=== PATIENT | female | born 1985 | race Caucasian/White ===

== ENCOUNTER → 2017-02-10 | Outpatient (REF) | payer OTHER ==
[2017-02-10 12:21] LABS: HEMATOCRIT 43.2 % (36.0-47.0); HEMOGLOBIN 14.3 g/dl (12.0-16.0); MEAN CORPUSCULAR HEMOGLOBIN 28.6 pg (27.0-33.0); MEAN CORPUSCULAR HGB CONC 33.1 g/dl (32.0-36.5); MEAN CORPUSCULAR VOLUME 86.4 fl (80.0-96.0); PLATELET COUNT, AUTOMATED 217 10^3/uL (150-450); RED CELL DISTRIBUTION WIDTH 12.2 % (11.5-14.5); WHITE BLOOD COUNT 5.3 10^3/uL (4.0-10.0)
[2017-02-10 12:29] LABS: TOTAL 25(OH) VITAMIN D 29.1 NG/ML (30.0-100.0); TOTAL T3 130.1 NG/DL (60.0-181.0)
[2017-02-10 12:37] LABS: ALBUMIN 4.1 GM/DL (3.2-5.2); ALBUMIN/GLOBULIN RATIO 1.46 (1.00-1.93); ALKALINE PHOSPHATASE 66 U/L (45-117); ALT/SGPT 26 U/L (12-78); ANION GAP 5 MEQ/L (8-16); AST/SGOT 15 U/L (7-37); BILIRUBIN,TOTAL 0.8 MG/DL (0.2-1.0); BLOOD UREA NITROGEN 15 MG/DL (7-18); CALCIUM LEVEL 8.8 MG/DL (8.5-10.1); CARBON DIOXIDE LEVEL 29 MEQ/L (21-32); CHLORIDE LEVEL 106 MEQ/L (98-107); CHOLESTEROL LEVEL 162 MG/DL (<200); CHOLESTEROL RISK RATIO 2.219 (<5); GLOMERULAR FILTRATION RATE > 60.0 (>60); GLUCOSE, FASTING 85 MG/DL (70-105); HDL CHOLESTEROL 73 MG/DL (>40); LDL CHOLESTEROL 73.4 MG/DL (<100); NON-HDL-C 89 MG/DL; POTASSIUM SERUM 3.9 MEQ/L (3.5-5.1); SODIUM LEVEL 140 MEQ/L (136-145); THYROXINE (T4) 8.7 UG/DL (4.5-12.0); TOTAL PROTEIN 6.9 GM/DL (6.4-8.2); TRIGLYCERIDES LEVEL 78 MG/DL (<150)
[2017-02-10 13:15] LABS: ESTIMATED AVERAGE GLUCOSE 91 MG/DL (60-110); HEMOGLOBIN A1c 4.8 %
[2017-02-12 14:10] LABS: C-PEPTIDE 2.6 ng/mL (1.1-4.4)
[2017-02-12 14:10] LABS: INSULIN LEVEL 12.1 uIU/mL (2.6-24.9)
== END ==
LOC: M LABNEURO 08:08
DX: E11.9 Type 2 diabetes mellitus without complications (principal); E03.9 Hypothyroidism, unspecified; R53.83 Other fatigue
CPT/HCPCS: 83525

== ENCOUNTER → 2017-06-09 | Outpatient (REF) | payer OTHER | LOC: M LABNEURO 08:09 | DX: J02.0 Streptococcal pharyngitis (principal) ==

== ENCOUNTER → 2017-07-09 | Outpatient (CLI) | payer OTHER ==
[2017-07-09 09:02] LABS: MEAN CORPUSCULAR HEMOGLOBIN 28.8 pg (27.0-33.0); MEAN CORPUSCULAR HGB CONC 33.3 g/dl (32.0-36.5); MEAN CORPUSCULAR VOLUME 86.4 fl (80.0-96.0); PLATELET COUNT, AUTOMATED 229 10^3/uL (150-450); RED BLOOD COUNT 4.86 10^6/uL (4.00-5.40); RED CELL DISTRIBUTION WIDTH 12.4 % (11.5-14.5); WHITE BLOOD COUNT 5.5 10^3/uL (4.0-10.0)
[2017-07-09 09:32] LABS: ALBUMIN 3.8 GM/DL (3.2-5.2); ALBUMIN/GLOBULIN RATIO 1.12 (1.00-1.93); ALKALINE PHOSPHATASE 75 U/L (45-117); ALT/SGPT 17 U/L (12-78); ANION GAP 5 MEQ/L (8-16); AST/SGOT 12 U/L (7-37); BILIRUBIN,TOTAL 0.7 MG/DL (0.2-1.0); BLOOD UREA NITROGEN 13 MG/DL (7-18); CALCIUM LEVEL 8.7 MG/DL (8.5-10.1); CARBON DIOXIDE LEVEL 29 MEQ/L (21-32); CHLORIDE LEVEL 109 MEQ/L (98-107); CHOLESTEROL LEVEL 142 MG/DL (<200); CHOLESTEROL RISK RATIO 2.327 (<5); CREATININE FOR GFR 0.68 MG/DL (0.55-1.30); GLOMERULAR FILTRATION RATE > 60.0 (>60); GLUCOSE, FASTING 88 MG/DL (70-100); HDL CHOLESTEROL 61 MG/DL (>40); LDL CHOLESTEROL 71.6 MG/DL (<100); NON-HDL-C 81 MG/DL; POTASSIUM SERUM 4.3 MEQ/L (3.5-5.1); SODIUM LEVEL 143 MEQ/L (136-145); THYROID STIMULATING HORMONE 0.984 uIU/ML (0.358-3.740); TOTAL PROTEIN 7.2 GM/DL (6.4-8.2); TRIGLYCERIDES LEVEL 47 MG/DL (<150)
[2017-07-09 10:21] LABS: ESTIMATED AVERAGE GLUCOSE 97 MG/DL (60-110)
== END ==
LOC: M LAB 07:56
DX: R53.83 Other fatigue (principal); E03.9 Hypothyroidism, unspecified
CPT/HCPCS: 84443

== ENCOUNTER 2018-03-28 11:32 | Emergency (ER) | payer OTHER ==
[~2018-03-28] VITALS: Ht 172.7 cm; Wt 84.1 kg
[2018-03-28 11:32] VITALS: BP 128/89
[~2018-03-28 11:32] MED LIST: MULTCAP PO; PERC5TAB12 PO; PHEN30CA2 PO
[2018-03-28] MEDS ORDERED: LEVO150T7 (11:38)
[2018-03-28] MEDS ORDERED: RIZA10TA2 (11:38)
[2018-03-28] MEDS ORDERED: DEXTROAMP (11:38)
== END 2018-03-28 13:22 | disposition left against medical advice (07) ==
LOC: M ED 11:32
DX: M54.2 Cervicalgia (principal); E03.9 Hypothyroidism, unspecified; Z79.899 Other long term (current) drug therapy

== ENCOUNTER → 2019-02-20 | Outpatient (REF) | payer OTHER ==
[~2019-02-20] MED LIST changes: +DEXTROAMP; +LEVO150T7; +RIZA10TA2
[2019-02-20 15:09] LABS: HEMATOCRIT 44.7 % (36.0-47.0); HEMOGLOBIN 14.5 g/dl (12.0-15.5); MEAN CORPUSCULAR HEMOGLOBIN 28.1 pg (27.0-33.0); MEAN CORPUSCULAR HGB CONC 32.4 g/dl (32.0-36.5); MEAN CORPUSCULAR VOLUME 86.6 fl (80.0-96.0); PLATELET COUNT, AUTOMATED 238 10^3/uL (150-450); RED BLOOD COUNT 5.16 10^6/uL (4.00-5.40)
[2019-02-20 16:47] LABS: ALBUMIN 3.9 GM/DL (3.2-5.2); ALT/SGPT 19 U/L (12-78); BILIRUBIN,TOTAL 0.4 MG/DL (0.2-1.0); BLOOD UREA NITROGEN 16 MG/DL (7-18); CALCIUM LEVEL 8.9 MG/DL (8.5-10.1); CARBON DIOXIDE LEVEL 30 MEQ/L (21-32); CHLORIDE LEVEL 103 MEQ/L (98-107); CHOLESTEROL LEVEL 152 MG/DL (<200); CREATININE FOR GFR 0.69 MG/DL (0.55-1.30); GLOMERULAR FILTRATION RATE > 60.0 (>60); GLUCOSE, FASTING 88 MG/DL (70-100); HDL CHOLESTEROL 58 MG/DL (>40); LDL CHOLESTEROL 79 MG/DL (<100); NON-HDL-C 94 MG/DL; SODIUM LEVEL 138 MEQ/L (136-145); THYROXINE (T4) 12.6 UG/DL (4.5-12.0); TOTAL 25(OH) VITAMIN D 25.6 NG/ML (30.0-100.0); TOTAL PROTEIN 7.2 GM/DL (6.4-8.2); TRIGLYCERIDES LEVEL 77 MG/DL (<150)
[2019-02-20 16:48] LABS: TOTAL T3 135.4 NG/DL (60.0-181.0)
[2019-02-20 17:22] LABS: HEMOGLOBIN A1c 4.9 %
== END ==
LOC: M LABNEURO 08:06
PROVIDERS: ATTEND Family Medicine
DX: R53.83 Other fatigue (principal); E03.9 Hypothyroidism, unspecified

== ENCOUNTER → 2019-06-09 | Outpatient (CLI) | payer OTHER ==
--- NOTE | 2019-06-09 08:48 | REP ---
MAXILLOFACIAL CT STUDY WITHOUT CONTRAST: HISTORY: Chronic sinusitis. Comparison is made with imaging from brain MRI study October 19, 2017. CT FINDINGS: Preliminary digital scouts radiograph is unremarkable. The frontal sinuses are clear. There are minimal mucosal thickening changes in the anterior ethmoid air cells bilaterally. Sphenoid sinuses are clear. There is mild mucosal thickening in the inferior aspect of the maxillary sinuses bilaterally similar to the appearance seen on October 19, 2017 MRI study of the brain. Mastoid aeration is normal and symmetric. The middle ear cavities are aerated bilaterally. No intraorbital abnormality is seen. The deep facial and intracranial soft tissues are unremarkable as visualized. The mid bony nasal septum deviates slightly to the right without a discernible beak. Nasal turbinate soft tissues are unremarkable and symmetric. Ostiomeatal complexes appear patent. IMPRESSION: Mild mucosal changes in the maxillary sinuses and anterior ethmoid sinuses bilaterally. Otherwise negative. Electronically Signed by Peter Villalobos MD 06/09/2019 10:41 A
== END ==
LOC: M RAD 08:11
PROVIDERS: ATTEND Otolaryngology
DX: J32.4 Chronic pansinusitis (principal)

== ENCOUNTER → 2019-08-18 | Outpatient (CLI) | payer OTHER ==
[~2019-08-18] MED LIST changes: +ESCI10TA2 PO; +RIZA10TA58 PO; +SING10TA32 PO; +TRIA37.53 PO
== END ==
LOC: M LABSMTC 13:18
PROVIDERS: ATTEND Anesthesiology
DX: Z01.818 Encounter for other preprocedural examination (principal); Z11.59 Encounter for screening for other viral diseases
CPT/HCPCS: C9803; U0003

== ENCOUNTER 2019-08-22 09:42 | Day surgery (SDC) | payer OTHER ==
[~2019-08-22] VITALS: Ht 170.2 cm; Wt 99.7 kg
[~2019-08-22 09:42] MED LIST changes: +LIDOCAINE 1% MDV 20ML VIAL SQ PRN
[2019-08-22] MEDS ORDERED: LR 1,000 ML IV ONE (10:45)
[2019-08-22] MEDS ORDERED: MIDAZOLAM INJ 2MG/2ML VIAL (J2250 PER 1MG) As Ordered ONE (11:44)
[2019-08-22] MEDS ORDERED: dexameTHASONE 4 MG/ML 1ML VIAL (J1100 PER 1MG) As Ordered ONE (11:44)
[2019-08-22] MEDS ORDERED: LIDOCAINE 2% 100MG/5ML SDV (FOR ANES.) As Ordered ONE (11:45)
[2019-08-22] MEDS ORDERED: fentaNYL 250 MCG/5 ML INJECTION (J3010) As Ordered ONE (11:47)
[2019-08-22] MEDS ORDERED: LIDOCAINE W/EPINEPHRINE 1% 20ML VIAL As Ordered ONE (13:17)
[2019-08-22] MEDS ORDERED: METHYLENE BLUE 0.5% (5MG/ML) 10 ML AMP (PROVAYBLUE) As Ordered ONE (13:17)
[2019-08-22] MEDS ORDERED: EPINEPHrine 1MG/ML INJ 30ML MD-VIAL As Ordered ONE (13:18)
[2019-08-22] MEDS ORDERED: ONDANSETRON 4MG/2ML VIAL As Ordered ONE (14:38)
[2019-08-22] MEDS ORDERED: SUGAMMADEX SODIUM 500 MG/5 ML VIAL (BRIDION) As Ordered ONE (14:38)
[2019-08-22] MEDS ORDERED: ACETAMINOPH W/CODEINE #3 TAB UD PO PRN (15:15)
[2019-08-22] MEDS ORDERED: HYDROMORPHONE HCL 0.5 MG/ 0.5 ML SYRINGE (J1170 PER 1) IV PRN (15:15)
[2019-08-22] MEDS ORDERED: LR 1,000 ML IV SCH ×2 (15:15)
[2019-08-22] MEDS ORDERED: ONDANSETRON 4MG/2ML VIAL IV PRN (15:15)
[2019-08-22] MEDS ORDERED: METOCLOPRAMIDE INJ 10MG/2ML VIAL (J2765 PER 1) IV PRN (15:15)
[2019-08-22] MEDS ORDERED: oxyCODONE 5MG TAB PO PRN (15:15)
[2019-08-22] MEDS: fentaNYL 100 MCG/2 ML INJECTION (J3010) IV PRN ×4 (15:27→15:52)
[2019-08-22 16:28] VITALS: BP 131/70
--- NOTE | 2019-08-30 09:10 | RO ---
DATE OF PROCEDURE: 08/22/2019 PREOPERATIVE DIAGNOSES: Chronic sinusitis and nasal septal deviation. POSTOPERATIVE DIAGNOSES: Chronic sinusitis and nasal septal deviation. OPERATIVE PROCEDURE: Septoplasty with bilateral turbinectomies, antrostomies. SURGEON: Dr. Tristian Grady MANAGER AGRICULTURAL: ANESTHESIA: General. DESCRIPTION OF PROCEDURE: Under general anesthesia with the patient intubated, patient draped in the usual manner. I used pledgets of adrenaline 1:1000 and infiltrated with lidocaine with epinephrine. I made an incision entering on the left side, elevated the subperichondrial periosteal plane. I removed portions of the maxillary crest, ethmoid plate, and vomer, which were deviated. Once this was done, the septum was straight. I closed the incision with #4-0 chromic. Then, I went between the middle turbinate and lateral nasal wall on the right side. I removed the uncinate process , entered the maxillary sinus, enlarged that opening. The same procedure was performed on the opposite side. I made an incision anterior to the inferior turbinate on both sides. I elevated the mucosa. I used the microdebrider and removed portion of the leela anteriorly on both sides. I closed that incision with a #4-0 Vicryl. Patient tolerated the procedure well. Less than 20 mL estimated blood loss. Patient extubated and transferred to the recovery room in excellent condition.
== END 2019-08-22 16:45 | disposition home or self-care (01) ==
LOC: M SDC 09:42
PROVIDERS: ATTEND Otolaryngology
DX: J32.0 Chronic maxillary sinusitis (principal); J34.2 Deviated nasal septum; J31.0 Chronic rhinitis; Z87.891 Personal history of nicotine dependence; F32.9 Major depressive disorder, single episode, unspecified; Z79.899 Other long term (current) drug therapy
CPT/HCPCS: 30140; 30520; 31267; 88300; 88305; C2625; J1100; J2250; J2405; J3010; Q9968

== ENCOUNTER → 2020-01-16 | Outpatient (CLI) | payer SELFPAY ==
[~2020-01-16] MED LIST changes: -LIDOCAINE 1% MDV 20ML VIAL SQ PRN
== END ==
LOC: M LABSMTC 10:10
PROVIDERS: ATTEND Pediatrics
DX: Z11.59 Encounter for screening for other viral diseases (principal)

== ENCOUNTER 2020-02-12 08:15 | Emergency (ER) | payer OTHER, SELFPAY ==
[~2020-02-12] VITALS: Ht 170.2 cm; Wt 103.5 kg
[2020-02-12 08:18] VITALS: BP 140/78
[2020-02-12] MEDS ORDERED: MUCI1LIQ3 PO (08:47)
[2020-02-12] MEDS ORDERED: SUMA25TA3 (08:47)
[2020-02-12] MEDS ORDERED: TOPI25TA10 (08:47)
== END 2020-02-12 10:02 | disposition home or self-care (01) ==
LOC: M ED 08:15
DX: J06.9 Acute upper respiratory infection, unspecified (principal); Z20.828 Contact with and (suspected) exposure to other viral communicable diseases; R50.9 Fever, unspecified; R05 Cough; R07.0 Pain in throat; R51.9 Headache, unspecified; R09.82 Postnasal drip; E03.9 Hypothyroidism, unspecified; E66.9 Obesity, unspecified; Z79.899 Other long term (current) drug therapy; Z88.0 Allergy status to penicillin
CPT/HCPCS: 99282; U0003

== ENCOUNTER → 2020-02-20 | Outpatient (REF) | payer OTHER ==
[~2020-02-20] MED LIST changes: +ESCI10TA16 PO; -ESCI10TA2 PO; +MUCI1LIQ3 PO; +SUMA25TA3; +TOPI25TA10
[2020-02-20 10:40] LABS: BASO % 0.6 % (0.0-1.0); EOS # 0.7 10^3/uL (0.0-0.5); EOS % 9.6 % (0.0-3.0); LYMPH # 2.3 10^3/uL (1.5-5.0); LYMPH % 33.5 % (24.0-44.0); MEAN CORPUSCULAR HEMOGLOBIN 28.1 pg (27.0-33.0); MEAN CORPUSCULAR HGB CONC 31.8 g/dl (32.0-36.5); MEAN CORPUSCULAR VOLUME 88.4 fl (80.0-96.0); MONO # 0.5 10^3/uL (0.0-0.8); MONO % 7.1 % (0.0-5.0); NEUTROPHILS # 3.3 10^3/uL (1.5-8.5); NEUTROPHILS % 48.8 % (36.0-66.0); PLATELET COUNT, AUTOMATED 253 10^3/uL (150-450); RED BLOOD COUNT 4.98 10^6/uL (4.00-5.40); WHITE BLOOD COUNT 6.8 10^3/uL (4.0-10.0)
[2020-02-20 11:19] LABS: ALT/SGPT 18 U/L (12-78); BILIRUBIN,TOTAL 0.5 MG/DL (0.2-1.0); BLOOD UREA NITROGEN 16 MG/DL (7-18); CALCIUM LEVEL 9.3 MG/DL (8.5-10.1); CARBON DIOXIDE LEVEL 28 MEQ/L (21-32); CHLORIDE LEVEL 109 MEQ/L (98-107); CHOLESTEROL LEVEL 176 MG/DL (<200); GLOMERULAR FILTRATION RATE > 60.0 (>60); GLUCOSE, FASTING 90 MG/DL (70-100); HDL CHOLESTEROL 62 MG/DL (>40); SODIUM LEVEL 141 MEQ/L (136-145); TRIGLYCERIDES LEVEL 82 MG/DL (<150)
[2020-02-20 11:20] LABS: ALBUMIN 3.6 GM/DL (3.2-5.2); CHOLESTEROL RISK RATIO 2.838 (<5); FREE T4 0.93 NG/DL (0.76-1.46); LDL CHOLESTEROL 98 MG/DL (<100); NON-HDL-C 114 MG/DL; NT-PRO BNP 26 PG/ML (<125); TOTAL PROTEIN 6.9 GM/DL (6.4-8.2)
== END ==
LOC: M SFHCPLAZ 08:23
PROVIDERS: ATTEND Physician Assistant Medical
DX: Z00.00 Encounter for general adult medical examination without abnormal findings (principal); Z13.220 Encounter for screening for lipoid disorders; E66.9 Obesity, unspecified; R60.9 Edema, unspecified

== ENCOUNTER → 2020-08-29 | Outpatient (CLI) | payer OTHER ==
--- NOTE | 2020-08-29 09:44 | REPVR ---
PROCEDURE INFORMATION: Exam: CT Maxillofacial Without Contrast, Sinus Exam date and time: 08/29/2020 8:10 AM Age: 34 years old Clinical indication: Pain; Other: Sinus; Additional info: Chronic pansinusitis TECHNIQUE: Imaging protocol: CT Maxillofacial without contrast. Focus on the sinuses. Radiation optimization: All CT scans at this facility use at least one of these dose optimization techniques: automated exposure control; mA and/or kV adjustment per patient size (includes targeted exams where dose is matched to clinical indication); or iterative reconstruction. COMPARISON: CT Maxilofacial w/out contrast 06/09/2019 8:26 AM FINDINGS: Frontal sinuses: Normal. No air-fluid levels. Ethmoid air cells: See "Maxillary sinuses" finding. Sphenoid sinuses: Normal. No air-fluid levels. Maxillary sinuses: There is a fluid level in the posterior left maxillary sinus and some mucoid debris posteriorly on the right. There is mild mucosal thickening of the bilateral maxillary sinuses, left posterior ethmoid sinuses and the right frontoethmoid recess. Nasal cavity/Septum: Unremarkable. Orbital cavity: Orbits are normal. Globes are unremarkable. Bones/joints: No evidence of thickening of the bony payne or destructive change can be seen. There is no significant anatomic deformity of the ostiomeatal complex. Soft tissues: Unremarkable. IMPRESSION: 1. There is a fluid level in the posterior left maxillary sinus and some mucoid debris posteriorly on the right. There is mild mucosal thickening of the bilateral maxillary sinuses, left posterior ethmoid sinuses and the right frontoethmoid recess. 2. No evidence of thickening of the bony payne or destructive change can be seen. There is no significant anatomic deformity of the ostiomeatal complex. Electronically signed by: Saurabh Brown On 08/29/2020 09:43:49 AM
== END ==
LOC: M RAD 08:04
PROVIDERS: ATTEND Otolaryngology
DX: J32.4 Chronic pansinusitis (principal)

== ENCOUNTER 2020-11-13 07:09 | Day surgery (SDC) | payer OTHER ==
[~2020-11-13] VITALS: Ht 170.2 cm; Wt 106.6 kg
[~2020-11-13 07:09] MED LIST changes: +IBUP1TAB7 PO; +LEXA1TAB2 PO; +LIDOCAINE 1% MDV 20ML VIAL SQ PRN; +LR 1,000 ML IV ONE; -TOPI25TA10; +TOPI25TA10 PO
[2020-11-13] MEDS ORDERED: PYRI1TAB5 PO (07:30)
[2020-11-13] MEDS ORDERED: EPINEPHrine 1MG/ML INJ 30ML MD-VIAL As Ordered ONE (07:43)
[2020-11-13] MEDS ORDERED: LIDOCAINE W/EPINEPHRINE 1% 20ML VIAL As Ordered ONE (07:44)
[2020-11-13] MEDS ORDERED: METHYLENE BLUE 0.5% (5MG/ML) 10 ML AMP (PROVAYBLUE) As Ordered ONE (07:44)
[2020-11-13] MEDS ORDERED: LIDOCAINE 2% 100MG/5ML SDV (FOR ANES.) As Ordered ONE (07:50)
[2020-11-13] MEDS ORDERED: ROCURONIUM BROMIDE 50 MG/5 ML VIAL As Ordered ONE (07:50)
[2020-11-13] MEDS ORDERED: MIDAZOLAM INJ 2MG/2ML VIAL (J2250 PER 1MG) As Ordered ONE (07:51)
[2020-11-13] MEDS ORDERED: fentaNYL 250 MCG/5 ML INJECTION (J3010) As Ordered ONE (07:51)
[2020-11-13] MEDS ORDERED: propofoL 200 MG/20 ML VIAL As Ordered ONE ×2 (07:51→10:52)
[2020-11-13] MEDS ORDERED: dexameTHASONE 4 MG/ML 1ML VIAL (J1100 PER 1MG) As Ordered ONE (08:18)
[2020-11-13] MEDS ORDERED: METOCLOPRAMIDE INJ 10MG/2ML VIAL (J2765 PER 1) As Ordered ONE (08:32)
[2020-11-13] MEDS ORDERED: KETOROLAC 60MG 2ML VIAL As Ordered ONE (08:32)
[2020-11-13] MEDS ORDERED: ONDANSETRON 4MG/2ML VIAL As Ordered ONE (08:32)
[2020-11-13] MEDS ORDERED: SUGAMMADEX SODIUM 500 MG/5 ML VIAL (BRIDION) As Ordered ONE ×2 (08:32→08:33)
[2020-11-13] MEDS ORDERED: ACETAMINOPHEN 1000MG 100ML IV BTL (OFIRMEV) (J0131 PER 10MG) As Ordered ONE (08:33)
[2020-11-13] MEDS ORDERED: fentaNYL 100 MCG/2 ML INJECTION (J3010) IV PRN (09:40)
[2020-11-13] MEDS ORDERED: ONDANSETRON 4MG/2ML VIAL IV PRN (09:40)
[2020-11-13] MEDS ORDERED: oxyCODONE 5MG TAB PO PRN (09:40)
[2020-11-13] MEDS ORDERED: ACETAMINOPHEN/CODEINE 300MG/30MG 12.5 ML UDC PO PRN (09:40)
[2020-11-13] MEDS ORDERED: LR 1,000 ML IV SCH ×2 (09:40)
[2020-11-13 11:00] VITALS: BP 118/80
--- NOTE | 2020-11-13 14:02 | RO ---
OPERATIVE NOTE DATE OF OPERATION: 11/13/2020 PREOPERATIVE DIAGNOSIS: Chronic rhinosinusitis, nasal valve collapse. POSTOPERATIVE DIAGNOSIS: Chronic rhinosinusitis, nasal valve collapse. PROCEDURE: Nasal valve repair, bilateral turbinectomy, antrostomy, ethmoidectomy. SURGEON: LUIS FERNANDO SAUER MD FINDINGS: The antrostomy site was opened but I just enlarged them. DESCRIPTION OF PROCEDURE: Under general anesthesia, the patient was intubated, patient was prepped and draped in the usual manner. I used pledgets soaked in adrenaline 1:100,000. I infiltrated the Lidocaine and Epinephrine. I started first on the right side. I removed a portion of the middle turbinate. I then went between the middle turbinate and lateral nasal wall. I enlarged the antrostomy opening and then opened the anterior ethmoid cells. The same procedure was performed on the opposite side. Then, what I did was I made an incision anterior to the nasal bone on both sides inferiorly and then elevated the periosteum. I then put in a stitch. First, what I did was I drilled a hole through the inferior part of the nasal bone and put the stitch through there and through the lateral darío of the lower lateral cartilage of 4-0 Monocryl. The same procedure was performed on both sides. The patient tolerated the procedure well. I put PROPEL implants in the osteomeatal complex area. Patient was extubated and transferred to the Recovery Room in excellent condition.
== END 2020-11-13 11:00 | disposition home or self-care (01) ==
LOC: M SDC 07:09
PROVIDERS: ATTEND Otolaryngology
DX: J32.8 Other chronic sinusitis (principal); K21.9 Gastro-esophageal reflux disease without esophagitis; F41.9 Anxiety disorder, unspecified; J45.909 Unspecified asthma, uncomplicated; G43.909 Migraine, unspecified, not intractable, without status migrainosus; R06.83 Snoring; Z87.891 Personal history of nicotine dependence; Z88.1 Allergy status to other antibiotic agents; Z79.899 Other long term (current) drug therapy
CPT/HCPCS: 30465; 30999; 31254; 31256; C2625; J0131; J1100; J1885; J2250; J2405; J2765; J3010; Q9968

== ENCOUNTER → 2021-03-12 | Outpatient (CLI) | payer OTHER ==
[~2021-03-12] MED LIST changes: -LIDOCAINE 1% MDV 20ML VIAL SQ PRN; -LR 1,000 ML IV ONE; -PHEN30CA2 PO; +PHEN30CA21 PO; +PYRI1TAB5 PO
[2021-03-12 16:18] LABS: FREE T4 0.97 NG/DL (0.76-1.46); THYROID STIMULATING HORMONE 1.83 uIU/ML (0.358-3.740)
== END ==
LOC: M PLALAB 14:13
PROVIDERS: ATTEND Physician Assistant Medical
DX: F41.9 Anxiety disorder, unspecified (principal)

== ENCOUNTER → 2021-10-09 | Outpatient (REF) | payer OTHER ==
[~2021-10-09] MED LIST changes: -TRIA37.53 PO; +TRIA37.577 PO
[2021-10-09 17:33] LABS: BASO % 0.3 % (0.0-1.0); EOS # 0.5 10^3/uL (0.0-0.5); EOS % 4.2 % (0.0-3.0); HEMATOCRIT 44.4 % (36.0-47.0); HEMOGLOBIN 14.5 g/dl (12.0-15.5); LYMPH % 25.2 % (24.0-44.0); MEAN CORPUSCULAR HEMOGLOBIN 27.7 pg (27.0-33.0); MEAN CORPUSCULAR HGB CONC 32.7 g/dl (32.0-36.5); MEAN CORPUSCULAR VOLUME 84.7 fl (80.0-96.0); MONO # 0.8 10^3/uL (0.0-0.8); MONO % 6.5 % (2.0-8.0); NEUTROPHILS # 7.5 10^3/uL (1.5-8.5); NEUTROPHILS % 63.4 % (36.0-66.0); PLATELET COUNT, AUTOMATED 311 10^3/uL (150-450); RED BLOOD COUNT 5.24 10^6/uL (4.00-5.40); WHITE BLOOD COUNT 11.8 10^3/uL (4.0-10.0)
[2021-10-09 18:16] LABS: ALBUMIN 3.7 GM/DL (3.2-5.2); ALT/SGPT 23 U/L (12-78); BILIRUBIN,TOTAL 0.4 MG/DL (0.2-1.0); BLOOD UREA NITROGEN 24 MG/DL (7-18); CALCIUM LEVEL 9.1 MG/DL (8.5-10.1); CARBON DIOXIDE LEVEL 24 MEQ/L (21-32); CHLORIDE LEVEL 107 MEQ/L (98-107); CHOLESTEROL LEVEL 167 MG/DL (<200); CHOLESTEROL RISK RATIO 2.783 (<5); CREATININE FOR GFR 0.77 MG/DL (0.55-1.30); GLOMERULAR FILTRATION RATE > 60.0 (>60); GLUCOSE, FASTING 91 MG/DL (70-100); HDL CHOLESTEROL 60 MG/DL (>40); LDL CHOLESTEROL 59 MG/DL (<100); NON-HDL-C 107 MG/DL; POTASSIUM SERUM 3.8 MEQ/L (3.5-5.1); SODIUM LEVEL 139 MEQ/L (136-145); TOTAL PROTEIN 7.2 GM/DL (6.4-8.2); TRIGLYCERIDES LEVEL 240 MG/DL (<150)
== END ==
LOC: M SFHCPLAZ 16:19
PROVIDERS: ATTEND Physician Assistant Medical
DX: K21.9 Gastro-esophageal reflux disease without esophagitis (principal); E66.9 Obesity, unspecified; Z13.220 Encounter for screening for lipoid disorders

== ENCOUNTER → 2023-02-11 | Outpatient (REF) | payer OTHER ==
[~2023-02-11] MED LIST changes: +MONT-5 PO; -SING10TA32 PO
== END ==
LOC: M SFHCPLAZ 17:13
PROVIDERS: ATTEND Physician Assistant Medical
DX: J06.9 Acute upper respiratory infection, unspecified (principal)

== ENCOUNTER 2023-04-02 20:47 | Emergency (ER) | payer OTHER ==
[~2023-04-02] VITALS: Ht 170.2 cm; Wt 104.2 kg
[2023-04-02 22:43] LABS: BASO % 0.3 % (0.0-1.0); EOS # 0.1 10^3/uL (0.0-0.5); EOS % 1.6 % (0.0-3.0); HEMATOCRIT 43.2 % (36.0-47.0); HEMOGLOBIN 14.6 g/dl (12.0-15.5); LYMPH % 16.2 % (24.0-44.0); MEAN CORPUSCULAR HEMOGLOBIN 28.5 pg (27.0-33.0); MEAN CORPUSCULAR HGB CONC 33.8 g/dl (32.0-36.5); MEAN CORPUSCULAR VOLUME 84.4 fl (80.0-96.0); MONO # 0.4 10^3/uL (0.0-0.8); MONO % 6.4 % (2.0-8.0); NEUTROPHILS # 4.8 10^3/uL (1.5-8.5); NEUTROPHILS % 75.2 % (36.0-66.0); PLATELET COUNT, AUTOMATED 199 10^3/uL (150-450); RED BLOOD COUNT 5.12 10^6/uL (4.00-5.40); WHITE BLOOD COUNT 6.4 10^3/uL (4.0-10.0)
[2023-04-02 23:04] LABS: LIPASE 28 U/L (12-53)
[2023-04-02 23:06] LABS: ALBUMIN 3.4 G/DL (3.2-5.2); ALKALINE PHOSPHATASE 73 U/L (46-116); ALT/SGPT 22 U/L (7.0-40); AST/SGOT 10 U/L (<34); BILIRUBIN,DIRECT 0.3 MG/DL (<0.4); TOTAL PROTEIN 6.3 G/DL (5.7-8.2)
[2023-04-02 23:08] LABS: HCG, SERUM QUALITATIVE NEGATIVE (NEGATIVE)
[2023-04-02] MEDS: METOCLOPRAMIDE INJ 10MG/2ML VIAL IV ONE (23:14)
[2023-04-02] MEDS: KETOROLAC 30 MG/ML 1ML VIAL IV ONE (23:14)
[2023-04-02] MEDS: NS 1,000 ML IV ONE (23:14)
[2023-04-02 23:15] VITALS: BP 100/61
[2023-04-02 23:30] VITALS: TEMP 98.1; O2SAT 96
[2023-04-02 23:30] LABS: BLOOD UREA NITROGEN 18 MG/DL (9-23); CALCIUM LEVEL 8.1 MG/DL (8.5-10.1); CARBON DIOXIDE LEVEL 26 MMOL/L (20-31); CHLORIDE LEVEL 107 MMOL/L (98-107); CREATININE FOR GFR 0.65 MG/DL (0.55-1.30); GLOMERULAR FILTRATION RATE > 60.0 (>60); GLUCOSE, FASTING 100 MG/DL (60-100); SODIUM LEVEL 138 MMOL/L (136-145)
[2023-04-02 23:32] LABS: RSV AMPLIFICATION NEGATIVE (NEGATIVE)
== END 2023-04-02 23:45 | disposition home or self-care (01) ==
LOC: M ED 20:47
DX: R10.13 Epigastric pain (principal); G43.909 Migraine, unspecified, not intractable, without status migrainosus; F32.A Depression, unspecified; R00.0 Tachycardia, unspecified; F17.210 Nicotine dependence, cigarettes, uncomplicated; F10.10 Alcohol abuse, uncomplicated; Z88.1 Allergy status to other antibiotic agents; Z88.8 Allergy status to other drugs, medicaments and biological substances; Z79.899 Other long term (current) drug therapy; Z79.1 Long term (current) use of non-steroidal anti-inflammatories (NSAID); Z53.9 Procedure and treatment not carried out, unspecified reason
CPT/HCPCS: 80048; 80076; 83690; 84703; 85025; 87631; 93005; 96361; 96374; 99284; J1885; J2765

== ENCOUNTER → 2023-05-13 | Outpatient (CLI) | payer OTHER ==
[2023-05-13 18:12] LABS: BASO % 0.4 % (0.0-1.0); EOS # 0.6 10^3/uL (0.0-0.5); EOS % 5.6 % (0.0-3.0); HEMATOCRIT 44.2 % (36.0-47.0); HEMOGLOBIN 14.4 g/dl (12.0-15.5); LYMPH # 2.9 10^3/uL (1.5-5.0); LYMPH % 29.5 % (24.0-44.0); MEAN CORPUSCULAR HEMOGLOBIN 28.5 pg (27.0-33.0); MEAN CORPUSCULAR HGB CONC 32.6 g/dl (32.0-36.5); MEAN CORPUSCULAR VOLUME 87.4 fl (80.0-96.0); MONO # 0.7 10^3/uL (0.0-0.8); MONO % 7.4 % (2.0-8.0); NEUTROPHILS # 5.6 10^3/uL (1.5-8.5); NEUTROPHILS % 56.7 % (36.0-66.0); PLATELET COUNT, AUTOMATED 298 10^3/uL (150-450); RED BLOOD COUNT 5.06 10^6/uL (4.00-5.40); WHITE BLOOD COUNT 9.9 10^3/uL (4.0-10.0)
[2023-05-13 18:28] LABS: HEMOGLOBIN A1c 4.8 % (4.0-6.0)
[2023-05-13 18:35] LABS: ALBUMIN 3.7 G/DL (3.2-5.2); ALKALINE PHOSPHATASE 80 U/L (46-116); ALT/SGPT 20 U/L (7.0-40); AST/SGOT 14 U/L (<34); BILIRUBIN,TOTAL 0.4 MG/DL (0.3-1.2); BLOOD UREA NITROGEN 16 MG/DL (9-23); CALCIUM LEVEL 9.6 MG/DL (8.5-10.1); CARBON DIOXIDE LEVEL 29 MMOL/L (20-31); CHLORIDE LEVEL 105 MMOL/L (98-107); CHOLESTEROL LEVEL 150 MG/DL (<200); CREATININE FOR GFR 0.62 MG/DL (0.55-1.30); GLOMERULAR FILTRATION RATE > 60.0 (>60); GLUCOSE, FASTING 86 MG/DL (60-100); HDL CHOLESTEROL 57.6 MG/DL (>40); LDL CHOLESTEROL 66.8 MG/DL (<100); NON-HDL-C 92.4 MG/DL; POTASSIUM SERUM 4.2 MMOL/L (3.5-5.1); SODIUM LEVEL 138 MMOL/L (136-145); TOTAL PROTEIN 6.8 G/DL (5.7-8.2); TRIGLYCERIDES LEVEL 128 MG/DL (<150)
[2023-05-13 18:36] LABS: FREE T4 0.96 NG/DL (0.89-1.76); THYROID STIMULATING HORMONE 2.939 uIU/ML (0.55-4.78)
== END ==
LOC: M PLALAB 15:18
PROVIDERS: ATTEND Physician Assistant Medical
DX: F41.9 Anxiety disorder, unspecified (principal)

== ENCOUNTER 2024-04-07 06:53 | Day surgery (SDC) | payer OTHER ==
[~2024-04-07] VITALS: Ht 170.2 cm; Wt 82.3 kg
[~2024-04-07 06:53] MED LIST changes: +PANT40TA29 PO; +SUCR1ORA PO
[2024-04-07] MEDS ORDERED: fentaNYL 100 MCG/2 ML INJECTION As Ordered ONE (07:02)
[2024-04-07] MEDS ORDERED: propofoL 200 MG/20 ML VIAL As Ordered ONE (07:34)
[2024-04-07 07:55] VITALS: BP 112/67; O2SAT 99
== END 2024-04-07 07:56 | disposition home or self-care (01) ==
LOC: M OPP 06:53
PROVIDERS: ATTEND Surgery
DX: K31.89 Other diseases of stomach and duodenum (principal); K44.9 Diaphragmatic hernia without obstruction or gangrene; R10.13 Epigastric pain; Z88.1 Allergy status to other antibiotic agents; Z88.8 Allergy status to other drugs, medicaments and biological substances; Z79.899 Other long term (current) drug therapy
CPT/HCPCS: 43239; 88305; J3010

== ENCOUNTER 2024-07-28 13:08 | Day surgery (SDC) | payer OTHER ==
[~2024-07-28] VITALS: Ht 170.2 cm; Wt 77.6 kg
[~2024-07-28 13:08] MED LIST changes: +PROA1AER2 IN; +TOPI-256 PO; -TOPI25TA10 PO
[2024-07-28 13:44] VITALS: TEMP 97.5
[2024-07-28] MEDS ORDERED: LIDOCAINE VISCOUS 2% SOLN 15 ML UDC As Ordered ONE (13:52)
[2024-07-28 14:16] VITALS: BP 123/89; O2SAT 100
== END 2024-07-28 14:23 | disposition home or self-care (01) ==
LOC: M OPP 13:08
PROVIDERS: ATTEND Surgery
DX: K44.9 Diaphragmatic hernia without obstruction or gangrene (principal); Z53.09 Procedure and treatment not carried out because of other contraindication

== ENCOUNTER 2024-10-10 06:19 | Day surgery (SDC) | payer OTHER ==
[~2024-10-10] VITALS: Ht 170.2 cm; Wt 82.6 kg
[~2024-10-10 06:19] MED LIST changes: +PROT1TAB2 PO
[2024-10-10] MEDS ORDERED: LR 1,000 ML IV SCH ×2 (06:20→12:10)
[2024-10-10] MEDS: ALBUTEROL SULFATE 2.5 MG/0.5 ML INH CONCENTRATE NEB SOLN NEB ONE (07:12)
[2024-10-10] MEDS: SCOPOLAMINE 1MG TRANSDERMAL PATCH TOP ONE (07:12)
[2024-10-10] MEDS ORDERED: MIDAZOLAM INJ 2 MG/2 ML VIAL As Ordered ONE (09:43)
[2024-10-10] MEDS ORDERED: ROCURONIUM BROMIDE 50MG/5ML VIAL As Ordered ONE (09:44)
[2024-10-10] MEDS ORDERED: LIDOCAINE 2% 100 MG/5 ML SDV (FOR ANES.) As Ordered ONE (09:45)
[2024-10-10] MEDS ORDERED: dexAMETHasone 4 MG/ML 1 ML VIAL As Ordered ONE (09:46)
[2024-10-10] MEDS: HEPARIN SOD 5000 UNITS/ML 1 ML VIAL/SYRINGE SQ ONE (10:05)
[2024-10-10] MEDS: ceFAZolin SOD 2 GM IV ONCE IV ONE (10:11)
[2024-10-10] MEDS ORDERED: SUGAMMADEX SODIUM 500 MG/5 ML VIAL As Ordered ONE (11:55)
[2024-10-10] MEDS ORDERED: KETOROLAC 30 MG/ML 1 ML VIAL As Ordered ONE (12:09)
[2024-10-10] MEDS ORDERED: SIME1CAP4 PO (12:23)
[2024-10-10] MEDS ORDERED: REGL5TAB2 PO (12:24)
[2024-10-10] MEDS: HYDROMORPHONE HCL 0.5 MG/0.5 ML SYRINGE IV PRN (12:32)
[2024-10-10] MEDS: ONDANSETRON 4MG 2ML VIAL IV PRN (12:33)
[2024-10-10 14:35] VITALS: BP 122/74; TEMP 99; O2SAT 100
== END 2024-10-10 14:40 | disposition home or self-care (01) ==
LOC: M SDC 06:19
PROVIDERS: ATTEND Surgery
DX: K44.9 Diaphragmatic hernia without obstruction or gangrene (principal); J45.909 Unspecified asthma, uncomplicated; Z79.899 Other long term (current) drug therapy; Z88.0 Allergy status to penicillin
CPT/HCPCS: 43282; C1781; J0665; J0666; J0690; J1100; J1171; J1885; J2250; J2405; J2765; J3010; S2900